=== PATIENT | male | born 1985 | race Caucasian/White ===

== ENCOUNTER 2017-01-21 21:15 | Emergency (ER) | payer BC ==
[~2017-01-21 21:15] MED LIST: AMARYL2 PO; AUG875 PO; BENTYL10 PO; BUM1 PO; BUM2 PO; COREG3 PO; DESITIN TOP; GLUCOPHAGE1000 MG PO; GLUCPH PO; GLUCXL5 PO; KDUR20 PO; KLOR-CON M2020 MEQ PO; L20 PO; LANTUS; LEVAQUIN750 MG PO; LEVEMFLXPN SC; LEVEMIR SC; LEVOTHYROXIN175 MCG PO; LEVOTHYROXIN200 MCG PO; NORCO1 TAB PO; NYSTOP100000 MG TOP; PRIN2.5 PO; SYNTHROID200 MCG PO; VICODINTAB PO; WELL100 PO; WELLSR150 PO; ZESTRIL2.5 MG PO; ZITHROMAX500 MG PO
[2017-01-21 23:13] LABS: BASOPHILS 0.1 %; BASOPHILS ABSOLUTE 0.01 10/3/uL (0.0-0.16); EOSINOPHILS 1.6 %; EOSINOPHILS ABSOLUTE 0.15 10/3/uL (0.0-0.53); HEMATOCRIT 36.5 % (40.0-51.0); HEMOGLOBIN 10.6 g/dL (13.6-17.8); IMMATURE GRANULOCYTES 0.2 %; IMMATURE GRANULOCYTES ABSOLUTE 0.02 10/3/uL (0.0-0.11); LYMPHOCYTES 15.4 %; LYMPHOCYTES ABSOLUTE 1.46 10/3/uL (0.67-4.30); MEAN CORPUSCULAR HEMOGLOB 25.9 pg (26.0-34.0); MEAN PLATELET VOLUME 9.1 fL (9.2-13.0); MONOCYTES 9.7 %; MONOCYTES ABSOLUTE 0.92 10/3/uL (0.21-1.20); NEUTROPHILS ABSOLUTE 6.95 10/3/uL (2.02-8.40); PLATELET COUNT 271 10/3/uL (150-400); RBC DISTRIBUTION WIDTH 18.5 % (12.0-16.0); WHITE BLOOD CELLS 9.5 10/3/uL (4.5-10.5)
[2017-01-21 23:15] LABS: MANUAL DIFF NO %
[2017-01-21 23:24] LABS: INTERNATIONAL NORMAL RATI 1.3 UNITS (-); PARTIAL THROMBO TIME 32.7 SEC (22.5-37.2)
[2017-01-21 23:28] LABS: ASCORBIC ACID (UR NOT ORDER) NEG (NEG); BILIRUBIN, URINE NEGATIVE (NEG); ER URINALYSIS TAT 0 Hrs 00 Mins; KETONE, URINE NEGATIVE (NEG); LEUKOCYTE ESTERASE(NOT OR LARGE (NEG)
[2017-01-21 23:29] LABS: NITRITE (URINE) POS (NEG); WBC (NOT ORDERED) (RFLEX) > 182 (0-5)
[2017-01-21 23:31] LABS: ALBUMIN 2.5 G/DL (3.5-5.0); ALKALINE PHOSPHATASE 102 U/L (45-117); BUN (BLOOD UREA NITROGEN) 12 MG/DL (6-23); CALCIUM, SERUM 8.2 MG/DL (8.5-10.4); CHEST PAIN PROFILE TAT 0 Hrs 22 Mins; CHLORIDE, SERUM 101 MMOL/L (96-112); CO2 (CARBON DIOXIDE) 38 MMOL/L (24-34); CREATININE 0.95 MG/DL (0.70-1.30); DIRECT BILIRUBIN 0.3 MG/DL (0.0-0.4); GFR AFRICAN AMERICAN 121 ML/MIN (>=60); GFR NON AFRICAN AMERICAN 105 ML/MIN (>=60); GLUCOSE, SERUM 110 MG/DL (60-99); INDIRECT BILIRUBIN(NOT ORDER) 0.4 MG/DL (0.1-0.9); POTASSIUM, SERUM 4.4 MMOL/L (3.5-5.3); SGOT(AST) 14 U/L (5-40); SGPT(ALT) 12 U/L (5-65); SODIUM, SERUM 142 MMOL/L (135-148); TOTAL BILIRUBIN 0.7 MG/DL (0-1.2); TOTAL PROTEIN 6.9 G/DL (6.0-8.5); TROPONIN I <0.02 NG/ML (<0.05)
[2017-01-25] MEDS ORDERED: VANTIN200 MG PO (07:38)
[2017-05-03] MEDS ORDERED: L20 (10:21)
[2017-05-03] MEDS ORDERED: GLUCOPHAGE1000 MG (10:22)
[2017-05-03] MEDS ORDERED: AMARYL2 PO ×2 (10:25→20:12)
[2017-05-03] MEDS ORDERED: NYSTOP (10:28)
[2017-05-03] MEDS ORDERED: BUM2 PO (20:08)
[2017-05-03] MEDS ORDERED: WELLSR150 PO (20:09)
[2017-05-03] MEDS ORDERED: COREG3 PO (20:10)
[2017-05-03] MEDS ORDERED: L20 PO (20:11)
[2017-05-03] MEDS ORDERED: LEVEMIR (20:13)
[2017-05-03] MEDS ORDERED: SYNTHROID200 MCG PO (20:15)
[2017-05-03] MEDS ORDERED: PRIN2.5 PO (20:16)
[2017-05-03] MEDS ORDERED: GLUCOPHAGE1000 MG PO (20:17)
[2017-05-03] MEDS ORDERED: KLOR-CON M2020 MEQ PO (20:18)
[2017-05-03] MEDS ORDERED: NYSTATPOW TOP (20:19)
[2017-05-03] MEDS ORDERED: DESITIN TOP (20:20)
[2017-05-06] MEDS ORDERED: GLUCPH PO (14:12)
== END 2017-01-22 01:34 | disposition home or self-care (01) ==
LOC: ER 21:15
PROVIDERS: Specialist
DX: T83.090A Other mechanical complication of cystostomy catheter, initial encounter (principal); N39.0 Urinary tract infection, site not specified; E66.01 Morbid (severe) obesity due to excess calories; I50.9 Heart failure, unspecified; J44.9 Chronic obstructive pulmonary disease, unspecified; E11.9 Type 2 diabetes mellitus without complications; Z79.4 Long term (current) use of insulin; Z79.2 Long term (current) use of antibiotics; Z79.899 Other long term (current) drug therapy
CPT/HCPCS: 71010; 74176; 80048; 80076; 81001; 83735; 83880; 84484; 85025; 85610; 85730; 87077; 87086; 87186; 93005; 96374; 96375; 99285; A9270-GY